=== PATIENT | female | born 1990 | race Two or more races ===

== ENCOUNTER 2025-02-19 21:42 | Inpatient (IN) | payer OTHER ==
[~2025-02-19] VITALS: Ht 162.6 cm; Wt 3.2 kg
[2025-02-19 21:07] VITALS: BP 121/72
[2025-02-19] MEDS ORDERED: RINGERS SOLUTION,LACTATED 1,000 ML IV SCH (22:00)
[2025-02-19 22:18] LABS: BASO % 0.2 % (0.1-1.2); HEMATOCRIT 38.1 % (34.1-44.9); HEMOGLOBIN 13.8 g/dL (11.2-15.7); LYMPH # 1.11 (1.18-3.74); LYMPH % 9.4 % (19.3-53.1); MEAN CORPUSCULAR HEMOGLOBIN 34.2 pg (25.6-32.2); MONO # 0.56 (0.24-0.82); MONO % 4.8 % (4.7-12.5); NEUT # 10.05 (1.56-6.13); NEUT % 85.3 % (34.0-71.1); PLATELET COUNT 184 K/uL (163-369); RED BLOOD COUNT 4.04 M/uL (3.93-5.22); RED CELL DISTRIBUTION WIDTH 12.8 % (11.6-14.4)
[2025-02-19 22:19] LABS: PH,URINE 5.5 (5.0-8.0); URINE APPEARANCE Clear; URINE BILIRRUBIN Negative (NEGATIVE); URINE BLOOD Small; URINE COLOR Yellow; URINE GLUCOSE Negative (NEGATIVE); URINE LEUKOCYTE Moderate; URINE NITRATE Negative; URINE PROTEIN Negative (NEGATIVE)
[2025-02-19 22:20] LABS: URINE BACTERIA 1094.1 uL (0.0-1933); URINE EPITHELIAL CELLS 30.2 uL (0.0-38.8); URINE WBC 67.9 uL (0.0-23.2)
[2025-02-19 22:24] LABS: URINE CAST 0.29 uL (0.0-1.40); URINE KETONE 80 (NEGATIVE); URINE RBC 0.4 uL (0.0-20.8)
[2025-02-19 22:29] LABS: INR 0.94; PARTIAL THROMBOPLASTIN TIME 27.4 SECONDS (22.0-34.0); PROTHROMBIN TIME 10.3 SECONDS (9.0-11.5)
[2025-02-19 22:33] LABS: ALBUMIN 3.1 gm/dL (3.4-5.0); BILIRUBIN TOTAL 0.62 mg/dL (0.3-1.2); CALCIUM 9.3 mg/dL (8.5-10.1); CREATININE SERUM 0.51 mg/dL (0.55-1.02); GFR 139.75; GLOBULINA 3.1 G/DL (2.4-3.5); POTASSIUM 3.82 mEq/L (3.5-5.1); TOTAL PROTEIN 6.2 gm/dL (6.4-8.2)
[2025-02-19 23:10] VITALS: BP 124/76
[2025-02-20] MEDS ORDERED: MORPHINE SULFATE 4 MG/ML CARTRIDGE IV ONE ×2 (00:30→18:45)
[2025-02-20 03:56] VITALS: BP 126/78
[2025-02-20 07:29] VITALS: BP 131/81
[2025-02-20] MEDS ORDERED: OXYTOCIN 500 ML IV SCH (10:00)
[2025-02-20] MEDS ORDERED: MORPHINE SULFATE 4 MG/ML CARTRIDGE IV STA (12:18)
[2025-02-20 12:35] VITALS: BP 111/63
[2025-02-20 15:29] VITALS: BP 140/71
[2025-02-20 18:33] VITALS: BP 128/68
[2025-02-20] MEDS ORDERED: OXYTOCIN 10 UNITS/ML VIAL ONE (21:14)
[2025-02-20] MEDS ORDERED: ERYTHROMYCIN BASE OPHT 1GM EACH TUBE OP ONE (21:14)
[2025-02-20] MEDS ORDERED: CEFAZOLIN SODIUM 1,000 MG VIAL IV ONE (22:30)
[2025-02-21] MEDS ORDERED: MORPHINE SULFATE 4 MG/ML VIAL IV ONE (00:45)
[2025-02-21 02:20] VITALS: BP 113/62
[2025-02-21] MEDS ORDERED: RINGERS SOLUTION,LACTATED 1,000 ML IV SCH (02:30)
[2025-02-21] MEDS ORDERED: OXYTOCIN 1,000 ML IV SCH (02:30)
[2025-02-21 03:19] LABS: BASO % 0.1 % (0.1-1.2); HEMATOCRIT 34.6 % (34.1-44.9); HEMOGLOBIN 12.1 g/dL (11.2-15.7); LYMPH # 0.81 (1.18-3.74); LYMPH % 5.8 % (19.3-53.1); MEAN CORPUSCULAR HEMOGLOBIN 33.4 pg (25.6-32.2); MONO # 1.03 (0.24-0.82); MONO % 7.4 % (4.7-12.5); NEUT % 86.3 % (34.0-71.1); PLATELET COUNT 151 K/uL (163-369); RED BLOOD COUNT 3.62 M/uL (3.93-5.22); RED CELL DISTRIBUTION WIDTH 13.1 % (11.6-14.4)
[2025-02-21] MEDS ORDERED: MORPHINE SULFATE 4 MG/ML CARTRIDGE IV PRN (06:00)
[2025-02-21 08:00] VITALS: BP 118/78
[2025-02-21] MEDS ORDERED: SIMETHICONE 125 MG CAPSULE PO SCH (09:00)
[2025-02-21] MEDS ORDERED: IBUprofen 800 MG TABLET PO SCH (09:00)
[2025-02-21] MEDS ORDERED: DOCUSATE SODIUM 100MG CAP PO SCH (09:00)
[2025-02-21 16:28] VITALS: BP 116/73
[2025-02-22] VITALS: BP 101/66
[2025-02-22 08:48] VITALS: BP 122/60
[2025-02-22 08:51] VITALS: BP 122/60
[2025-02-22 13:52] VITALS: BP 116/73
[2025-02-22 16:36] VITALS: BP 118/70
[2025-02-23] VITALS: BP 103/61
[2025-02-23 08:32] VITALS: BP 110/62
== END 2025-02-23 17:05 | disposition home or self-care (01) | DRG 788 ==
LOC: LDR 21:42 → O/R 02-20 22:04 → OB/GYN 02-20 23:56
PROVIDERS: ADMIT Obstetrics & Gynecology; ATTEND Obstetrics & Gynecology
PROC: 4A1HXCZ Monitoring of Products of Conception, Cardiac Rate, External Approach (ICD-10-PCS; 2025-02-19)
PROC: 10D00Z1 Extraction of Products of Conception, Low, Open Approach (ICD-10-PCS; principal; 2025-02-20 21:15)
DX: O76 Abnormality in fetal heart rate and rhythm complicating labor and delivery (principal); O32.8XX0 Maternal care for other malpresentation of fetus, not applicable or unspecified; Z3A.39 39 weeks gestation of pregnancy; Z37.0 Single live birth